=== PATIENT | male | born 1995 | race Hispanic/Latino ===

== ENCOUNTER 2018-07-22 16:55 | Emergency (ER) | payer BC, MEDICAID ==
[2018-07-22] MEDS ORDERED: TETANUS/DIPHTHERIA TOXOID [ADULT] 0.5 ML VIAL IM ONE (17:04)
== END 2018-07-22 17:29 | disposition home or self-care (01) ==
LOC: EDH 16:55
DX: S91.112A Laceration without foreign body of left great toe without damage to nail, initial encounter (principal); S90.32XA Contusion of left foot, initial encounter; W20.8XXA Other cause of strike by thrown, projected or falling object, initial encounter; Y93.89 Activity, other specified; Y92.89 Other specified places as the place of occurrence of the external cause; Y99.8 Other external cause status
CPT/HCPCS: 73620; 90471; 90714